=== PATIENT | male | born 1970 | race African-American/Black ===

== ENCOUNTER 2024-12-17 11:27 | Emergency (ER) | payer BC ==
[~2024-12-17] VITALS: Ht 162.6 cm; Wt 93.0 kg
[2024-12-17 12:36] LABS: BASOPHILS ABSOLUTE AUTO 0.02 K/mm3 (0.00-0.23); BASOPHILS PERCENT AUTO 0 % (0-2); EOSINOPHILS ABSOLUTE AUTO 0.43 K/mm3 (0.00-0.68); EOSINOPHILS PERCENT AUTO 5 % (0-6); Hematocrit 30.9 % (37.0-53.0); Hemoglobin 10.4 g/dL (13.5-17.5); IMMATURE GRAN ABSOLUTE AUTO 0.04 K/mm3 (0.00-0.10); IMMATURE GRAN PERCENT AUTO 0 % (0-1); LYMPHOCYTES ABSOLUTE AUTO 0.85 K/mm3 (0.84-5.20); LYMPHOCYTES PERCENT AUTO 9 % (21-46); MONOCYTES PERCENT AUTO 9 % (4-13); Mean Corpuscular HGB 26.3 pg (26.0-34.0); Mean Corpuscular HGB Conc 33.7 g/dL (31.5-36.5); Mean Corpuscular Volume 78 fL (80-100); Mean Platelet Volume 10.4 fL (9.1-12.4); NEUTROPHILS ABSOLUTE AUTO 7.35 K/mm3 (1.96-9.15); NEUTROPHILS PERCENT AUTO 77 % (41-73); Platelet Count 225 K/mm3 (150-400); RDW Coefficient Variation 14.9 % (11.7-14.2); RDW Standard Deviation 42.5 fL (35.1-46.3); Red Blood Cell Count 3.95 M/mm3 (4.30-5.90); White Blood Cell Count 9.59 K/mm3 (4.00-11.30)
[2024-12-17 13:11] LABS: Albumin, Blood 3.5 g/dL (3.4-5.0); Bilirubin, Total 0.7 mg/dL (0.1-1.0); Bun/Creatinine Ratio 9.9 (12.0-20.0); Calcium, Blood 8.8 mg/dL (8.5-10.1); Creatinine, Blood 1.72 mg/dL (0.60-1.20); Globulin, Blood 3.4 g/dL (2.2-4.0); Potassium, Blood 4.2 mmol/L (3.5-5.5); Total Protein, Blood 6.9 g/dL (6.4-8.2)
[2024-12-17] MEDS ORDERED: IBUP600 PO (15:05)
[2024-12-17] MEDS ORDERED: Lactated Ringer's 1,000 ML IV ONE (15:05)
[2024-12-17] MEDS ORDERED: OXYB5 PO (15:05)
[2024-12-17] MEDS ORDERED: Ondansetron HCl 2 MG / ML 2ML Vial IV ONE (15:05)
[2024-12-17] MEDS ORDERED: OXYC5 PO (15:05)
[2024-12-17] MEDS ORDERED: Morphine Sulfate 4 MG/1 ML Injection IV ONE (15:05)
[2024-12-17] MEDS ORDERED: ALBU90OI INH (15:06)
[2024-12-17] MEDS ORDERED: Hydroxychloroq200 MG PO (15:06)
[2024-12-17] MEDS ORDERED: CEPH500 PO (15:06)
[2024-12-17] MEDS ORDERED: BICALUTAMIDE PO (15:07)
[2024-12-17] MEDS ORDERED: Trimethoprim/Sulfamethoxazole DS Tab PO ONE (16:10)
[2024-12-17] MEDS ORDERED: ONDA4ODT MM (16:13)
[2024-12-17] MEDS ORDERED: BACTRIM DS TAB1 EAC1 PO (16:13)
[2024-12-17 16:26] VITALS: BP 147/86
== END 2024-12-17 17:05 | disposition home or self-care (01) ==
LOC: ER 11:27
PROVIDERS: Physician Assistant
DX: R10.32 Left lower quadrant pain (principal); Z85.46 Personal history of malignant neoplasm of prostate; Z85.89 Personal history of malignant neoplasm of other organs and systems; Z85.50 Personal history of malignant neoplasm of unspecified urinary tract organ; Z85.53 Personal history of malignant neoplasm of renal pelvis; N30.00 Acute cystitis without hematuria
CPT/HCPCS: 74177; 80053; 83690; 85025; 96361; 96374-59; 96375; 99284-25; A9270; J2270; J2405; J7120; Q9967